=== PATIENT | female | born 1995 | race Caucasian/White ===

== ENCOUNTER 2017-01-26 14:17 | Emergency (ER) | payer OTHER ==
[2017-01-26 14:59] LABS: BASO % 0.1 % (0.1-1.2); GRAN % 90.8 % (34.0-71.1); HEMATOCRIT 29.2 % (34-45); HEMOGLOBIN 10.1 g/dL (11.2-15.7); LYMPH # 0.6 10_X3_uL (1.2-3.7); LYMPH % 2.3 % (19.3-51.7); MEAN CORPUSCULAR HGB CONC 34.6 g/dL (32.0-36.0); MEAN CORPUSCULAR VOLUME 83.9 fL (79-95); MEAN PLATELET VOLUME 10.2 fl (7.5-11.5); MONO # 1.7 10_X3_uL (0.2-0.9); MONO % 6.8 % (4.7-12.5); PLATELET COUNT 189 x10_3/uL (182-369); RED BLOOD COUNT 3.48 x10_6/uL (3.9-5.2); RED CELL DISTRIBUTION WIDTH 13.5 % (11.7-14.4)
[2017-01-26 15:00] LABS: WHITE BLOOD COUNT 25.3 x10_3/uL (4.0-10.0)
[2017-01-26 15:34] LABS: ALKALINE PHOSPHATASE 70 U/L (50-136); ALT/SGPT 5 U/L (3.5-33.9); AST/SGOT 11 U/L (7.04-26.96); BILIRUBIN,TOTAL 1.05 mg/dL (0.0-1.0); BLOOD UREA NITROGEN 6 mg/dL (7-18); CALCIUM 8.2 mg/dL (8.7-10.7); CARBON DIOXIDE 14 mmol/L (21-32); CREATININE 0.7 mg/dL (0.6-1.3); GLUCOSE,RANDOM 105 mg/dL (70-99); SODIUM 131 mmol/L (136-145); TOTAL PROTEIN 6.3 gm/dL (6.4-8.2)
[2017-01-26 15:50] LABS: POTASSIUM 2.9 mmol/L (3.5-5.1)
[2017-01-26 15:56] LABS: URINE BILIRUBIN 1+ (NEGATIVE); URINE BLOOD 1+ (NEGATIVE); URINE GLUCOSE (UA) 50 mg/dL (NORMAL); URINE KETONE TRACE (NEGATIVE); URINE LEUKOCYTE ESTERASE 2+ (NEGATIVE); URINE NITRATE POSITIVE (NEGATIVE); URINE PROTEIN 2+ (NEGATIVE)
[2017-01-26 16:14] LABS: URINE BACTERIA 3+ (NONE SEEN); URINE MUCUS TRACE; URINE SQUAMOUS EPITHELIAL CELL 0-10 /[HPF] (NONE SEEN); URINE WBC TNTC WITH CLUMPING /[HPF] (0-5)
== END 2017-01-26 18:40 | disposition short-term general hospital (02) ==
LOC: ER 14:17
PROVIDERS: General Practice
DX: O23.13 Infections of bladder in pregnancy, third trimester (principal); O26.53 Maternal hypotension syndrome, third trimester; E11.9 Type 2 diabetes mellitus without complications; E87.6 Hypokalemia; R50.9 Fever, unspecified
CPT/HCPCS: 36415; 80053; 81001; 83605; 85025; 87040; 87086; 87186; 96360; 96361; 96372; 99070; 99284-25